=== PATIENT | male | born 2000 | race Native Hawaiian/Other Pacific Islander ===

== ENCOUNTER 2022-05-19 21:28 | Emergency (ER) | payer BC ==
[~2022-05-19] VITALS: Ht 182.9 cm; Wt 63.5 kg
[2022-05-19 23:25] VITALS: BP 118/69; TEMP 98.7
== END 2022-05-19 23:30 | disposition home or self-care (01) ==
LOC: ED 21:28
DX: S90.31XA Contusion of right foot, initial encounter (principal); V49.9XXA Car occupant (driver) (passenger) injured in unspecified traffic accident, initial encounter; Y92.89 Other specified places as the place of occurrence of the external cause
CPT/HCPCS: 96372; 99283; J1885

== ENCOUNTER 2022-10-24 16:45 | Outpatient (CLI) | payer BC | END 2022-10-24 19:10 | disposition home or self-care (01) | LOC: RAD 16:45 | PROVIDERS: ATTEND Physician Assistant | DX: R07.89 Other chest pain (principal) ==